=== PATIENT | female | born 1950 | race Caucasian/White ===

== ENCOUNTER 2022-07-28 16:39 | Emergency (ER) | payer MEDICARE ==
[~2022-07-28] VITALS: Ht 160 cm; Wt 55.3 kg
--- NOTE | 2022-07-28 17:59 | NUR ---
Patient is now waiting for x-ray & ultrasound imaging, NAD.
--- NOTE | 2022-07-28 19:58 | NUR ---
Patient discharged to home in stable condition. Written and verbal after care instructions given. Patient verbalizes understanding of instructions. Stressed follow up or return to ER for worsening s/s.
[2022-07-28 19:59] VITALS: BP 115/62
== END 2022-07-28 19:59 | disposition home or self-care (01) ==
LOC: EDBD 16:39 → ER 16:39
DX: M79.661 Pain in right lower leg (principal); Z88.0 Allergy status to penicillin; Z88.1 Allergy status to other antibiotic agents; Z88.2 Allergy status to sulfonamides; Z88.5 Allergy status to narcotic agent; Z88.6 Allergy status to analgesic agent; Z88.8 Allergy status to other drugs, medicaments and biological substances
CPT/HCPCS: A4663

== ENCOUNTER 2022-09-21 22:43 | Emergency (ER) | payer MEDICARE ==
[~2022-09-21] VITALS: Ht 160 cm; Wt 55.3 kg
--- NOTE | 2022-09-21 23:54 | NUR ---
Dr. Grewal evaluating patient at bedside. MSE in progress.
[2022-09-22 00:20] VITALS: BP 145/77
== END 2022-09-22 00:20 | disposition home or self-care (01) ==
LOC: ER 22:43
DX: R22.32 Localized swelling, mass and lump, left upper limb (principal); E03.9 Hypothyroidism, unspecified; Z88.0 Allergy status to penicillin; Z88.1 Allergy status to other antibiotic agents; Z88.2 Allergy status to sulfonamides; Z88.5 Allergy status to narcotic agent; Z88.6 Allergy status to analgesic agent; Z88.8 Allergy status to other drugs, medicaments and biological substances
CPT/HCPCS: A4663

== ENCOUNTER 2022-12-20 21:08 | Emergency (ER) | payer MEDICARE ==
[~2022-12-20] VITALS: Ht 160 cm; Wt 55.8 kg
[2022-12-20] MEDS ORDERED: LIDOCAINE 4% TOPICAL 50 ML BOTTLE TP ONE (22:15)
[2022-12-20] MEDS ORDERED: LIDOCAINE 4% TOPICAL 50 ML BOTTLE ONE (22:20)
[2022-12-20] MEDS ORDERED: BACITRACIN ZINC OINT 15 GM TUBE ONE (22:55)
[2022-12-20] MEDS ORDERED: BACITRACIN ZINC OINT 15 GM TUBE TOP ONE (23:00)
[2022-12-20 23:54] VITALS: BP 148/77; TEMP 98.2; O2SAT 96
== END 2022-12-20 23:45 | disposition home or self-care (01) ==
LOC: ER 21:10
DX: S51.812A Laceration without foreign body of left forearm, initial encounter (principal); E03.9 Hypothyroidism, unspecified; Z88.0 Allergy status to penicillin; Z88.1 Allergy status to other antibiotic agents; Z88.2 Allergy status to sulfonamides; Z88.6 Allergy status to analgesic agent; Z88.8 Allergy status to other drugs, medicaments and biological substances; W54.0XXA Bitten by dog, initial encounter; Y93.89 Activity, other specified; Y92.89 Other specified places as the place of occurrence of the external cause; Y99.8 Other external cause status
CPT/HCPCS: A4663